=== PATIENT | female | born 1995 | race Caucasian/White ===

== ENCOUNTER 2016-03-22 16:18 | Emergency (ER) | payer BC ==
[~2016-03-22] VITALS: Ht 175.3 cm; Wt 113.6 kg
[~2016-03-22 16:18] MED LIST: CLARITIN 1010 MG/TAB PO; GLUCOPHAGE500 MG/TAB PO; IMITREX50 MG PO; LEXAPRO 5MG5 MG PO; LOPRESSOR 225 MG/TAB PO; MICROGESTIN FE1 TA1 PO
[2016-03-22 16:21] VITALS: BP 138/94; TEMP 98.5
[2016-03-22 17:44] VITALS: PULSE 88
== END 2016-03-22 17:45 | disposition home or self-care (01) ==
LOC: COL.ER 16:18
DX: G43.909 Migraine, unspecified, not intractable, without status migrainosus (principal)
CPT/HCPCS: J1200; J1885; J2765; J7030

== ENCOUNTER → 2020-05-23 | Outpatient (CLI) | payer BC | LOC: DIA.ED | DX: E11.9 Type 2 diabetes mellitus without complications (principal); Z79.84 Long term (current) use of oral hypoglycemic drugs | CPT/HCPCS: G0108 ==

== ENCOUNTER → 2020-06-09 | Outpatient (CLI) | payer BC | LOC: DIA.ED 09:28 | DX: E11.9 Type 2 diabetes mellitus without complications (principal); Z79.84 Long term (current) use of oral hypoglycemic drugs; E66.8 Other obesity | CPT/HCPCS: G0108 ==

== ENCOUNTER 2021-03-10 11:00 | Emergency (ER) | payer BC ==
[~2021-03-10] VITALS: Ht 175.3 cm; Wt 127.3 kg
[2021-03-10 12:15] VITALS: BP 128/95; PULSE 92; TEMP 98.7
== END 2021-03-10 12:22 | disposition home or self-care (01) ==
LOC: COL.ER 11:00
DX: U07.1 COVID-19 (principal); J45.909 Unspecified asthma, uncomplicated; E11.9 Type 2 diabetes mellitus without complications; Z79.84 Long term (current) use of oral hypoglycemic drugs